=== PATIENT | female | born 1990 | race Caucasian/White ===

== ENCOUNTER 2024-11-08 14:00 | Emergency (ER) | payer MEDICAID ==
[~2024-11-08] VITALS: Ht 157.5 cm; Wt 77.0 kg
[2024-11-08 14:02] VITALS: O2SAT 100
[2024-11-08 14:07] VITALS: BP 109/68; PULSE 79; RESP 18; TEMP 36.9; O2SAT 98
[2024-11-08 14:22] LABS: BASOPHILS % 0.6 % (0.0-2.0); EOSINOPHILS % 1.5 % (0.0-5.0); HEMATOCRIT. 40.7 % (36.0-48.0); HEMOGLOBIN. 13.6 g/dL (12.0-16.0); LYMPHOCYTES % 18.4 % (20.0-50.0); MEAN PLATELET VOLUME 8.8 fl (7.4-10.4); MONOCYTES % 5.2 % (2.0-8.0); NEUTROPHILS % 74.3 % (40.0-76.0); PLATELET 229 x1000/uL (130-400); RED BLOOD CELL COUNT 4.85 mill/uL (4.2-5.4); RED CELL DISTRIBUTION WIDTH 13.7 % (11.6-14.6)
[2024-11-08] MEDS: MAGNESIUM/ALUMINUM HYDROXIDE/SIMETHICONE 30ML UDC PO ONE (14:30)
[2024-11-08] MEDS: FAMOTIDINE 20MG TABLET PO ONE (14:30)
[2024-11-08 14:41] LABS: CREATININE 0.7 mg/dL (0.6-1.0)
[2024-11-08 14:42] LABS: UREA NITROGEN BLOOD 6 mg/dL (9-23)
[2024-11-08 14:43] LABS: ASPARTATE AMINOTRANSFERASE 12 IU/L (<34)
[2024-11-08 14:44] LABS: BILIRUBIN DIRECT 0.1 mg/dL (<=3.0); BILIRUBIN TOTAL 0.6 mg/dL (0.1-1.0); PROTEIN TOTAL 7.7 g/dL (6.0-8.3)
[2024-11-08 15:22] LABS: HCG SCREEN NEGATIVE
[2024-11-08] MEDS: SUCRALFATE 1G TABLET PO SCH (15:32)
[2024-11-08 15:38] LABS: COLOR URINE YELLOW (YELLOW); GLUCOSE URINE NEGATIVE (NEGATIVE); KETONES URINE NEGATIVE (NEGATIVE); LEUKOCYTE ESTERASE URINE TRACE (NEGATIVE); NITRITE URINE NEGATIVE (NEGATIVE); OCCULT BLOOD URINE NEGATIVE (NEGATIVE); PH URINE 8.0 (4.5-8.0); PROTEIN URINE NEGATIVE (NEGATIVE); SPECIFIC GRAVITY URINE 1.021 (1.005-1.030); UROBILINOGEN URINE 1.0 E.U./dL (0.2-1.0)
[2024-11-08 15:51] LABS: CLARITY URINE HAZY (CLEAR)
[2024-11-08 16:03] LABS: WBC URINE 0-2 /hpf (0-2)
[2024-11-08 16:04] LABS: BACTERIA URINE TRACE; RBC URINE NONE SEEN /hpf (0-2); SQUAMOUS EPITHELIAL CELL URINE 2+ /lpf (RARE/1+)
== END 2024-11-08 15:53 | disposition home or self-care (01) ==
LOC: ER 14:00
DX: R10.13 Epigastric pain (principal); K80.12 Calculus of gallbladder with acute and chronic cholecystitis without obstruction; Z98.890 Other specified postprocedural states
CPT/HCPCS: 36415; 76705; 80048; 80076; 81003; 84703; 85025; 99284